=== PATIENT | female | born 1995 | race Caucasian/White ===

== ENCOUNTER 2017-06-17 02:04 | Emergency (ER) | payer OTHER ==
[~2017-06-17] VITALS: Ht 157.5 cm; Wt 66.7 kg
[2017-06-17 02:09] VITALS: Ht 157.5 cm; Wt 66.7 kg
[2017-06-17 04:12] VITALS: BP 122/85
== END 2017-06-17 04:12 | disposition home or self-care (01) ==
LOC: ED 02:04
DX: N20.0 Calculus of kidney (principal)
CPT/HCPCS: J1885; Q0162

== ENCOUNTER 2017-11-16 06:04 | Emergency (ER) | payer OTHER ==
[~2017-11-16] VITALS: Ht 157.5 cm; Wt 63.5 kg
[2017-11-16 06:08] VITALS: Ht 157.5 cm; Wt 63.5 kg
[2017-11-16 07:03] LABS: BASOPHIL % 0.5 % (0-2); CALCIUM 10.4 mg/dL (8.5-10.1); CHLORIDE SERUM 107 mmol/L (98-107); CREATININE SERUM 0.9 mg/dL (0.6-1.0); GFR1 > 60 mL/min; GLUCOSE SERUM 123 mg/dL (74-106); PLATELET COUNT 214 x10^3mcL (130-400); POTASSIUM SERUM 3.5 mmol/L (3.5-5.1); RED CELL DISTRIBUTION WIDTH 12.7 % (11.5-14.5); SODIUM SERUM 140 mmol/L (136-145)
[2017-11-16 07:08] LABS: ALBUMIN 3.8 g/dL (3.4-5.0); ALKALINE PHOSPHATASE 119 U/L (46-116); ALT/SGPT 39 U/L (14-59); AST/SGOT 17 U/L (15-37); BILIRUBIN TOTAL 0.47 mg/dL (0.20-1.00); LIPASE 104 IU/L (73-393); TOTAL PROTEIN, SERUM 7.5 g/dL (6.4-8.2)
[2017-11-16 07:11] LABS: UA SPECIFIC GRAVITY >=1.030 (1.005-1.035); microscopic required? YES; urine erythrocyte TRACE (NEGATIVE)
[2017-11-16 09:47] VITALS: BP 122/84
== END 2017-11-16 09:47 | disposition home or self-care (01) ==
LOC: ED 06:04
PROVIDERS: Emergency Medicine
DX: N13.30 Unspecified hydronephrosis (principal)
CPT/HCPCS: J1885; J2765; J7030; Q0092

== ENCOUNTER 2018-04-19 16:14 | Emergency (ER) | payer MEDICAID ==
[2018-04-19 18:30] LABS: CALCIUM 9.6 mg/dL (8.5-10.1); CARBON DIOXIDE 27.7 mmol/L (21-32); CHLORIDE SERUM 104 mmol/L (98-107); CREATININE SERUM 0.8 mg/dL (0.6-1.0); GFR1 > 60 mL/min; GLUCOSE SERUM 92 mg/dL (74-106); POTASSIUM SERUM 3.7 mmol/L (3.5-5.1); SODIUM SERUM 140 mmol/L (136-145)
[2018-04-19 18:31] LABS: BASOPHIL % 0.4 % (0-2); PLATELET COUNT 224 x10^3mcL (130-400); RED CELL DISTRIBUTION WIDTH 12.4 % (11.5-14.5)
[2018-04-19 18:35] LABS: ALBUMIN 3.9 g/dL (3.4-5.0); ALKALINE PHOSPHATASE 117 U/L (46-116); ALT/SGPT 20 U/L (14-59); AST/SGOT 14 U/L (15-37); BILIRUBIN TOTAL 0.57 mg/dL (0.20-1.00); TOTAL PROTEIN, SERUM 7.6 g/dL (6.4-8.2)
[2018-04-19 19:16] VITALS: BP 110/70
== END 2018-04-19 19:16 | disposition home or self-care (01) ==
LOC: ED 16:14
PROVIDERS: Emergency Medicine
DX: N20.0 Calculus of kidney (principal)
CPT/HCPCS: J1885; J2405; J7030

== ENCOUNTER 2019-03-08 18:13 | Emergency (ER) | payer SELFPAY ==
[~2019-03-08] VITALS: Ht 160 cm; Wt 64.0 kg
[2019-03-08 18:21] VITALS: BP 123/79; Ht 160 cm; Wt 64.0 kg
== END 2019-03-08 19:27 | disposition home or self-care (01) ==
LOC: ED 18:13
DX: M25.511 Pain in right shoulder (principal); Z87.442 Personal history of urinary calculi
CPT/HCPCS: 20552; J1885; J2001

== ENCOUNTER 2019-03-23 21:04 | Emergency (ER) | payer MEDICAID ==
[~2019-03-23] VITALS: Ht 160 cm; Wt 63.5 kg
[2019-03-23 21:27] VITALS: Ht 160 cm; Wt 63.5 kg
[2019-03-23 23:11] VITALS: BP 125/85
== END 2019-03-23 23:11 | disposition home or self-care (01) ==
LOC: ED 21:04
DX: S46.911A Strain of unspecified muscle, fascia and tendon at shoulder and upper arm level, right arm, initial encounter (principal); X58.XXXA Exposure to other specified factors, initial encounter; Y93.89 Activity, other specified; Y92.89 Other specified places as the place of occurrence of the external cause; Y99.8 Other external cause status
CPT/HCPCS: J1885